=== PATIENT | male | born 1945 | race Caucasian/White ===

== ENCOUNTER 2016-06-28 21:44 | Emergency (ER) | payer OTHER ==
[~2016-06-28] VITALS: Ht 175.3 cm; Wt 80.9 kg
[2016-06-28 22:03] LABS: ADD MIUA? YES; BILIRUBIN NEGATIVE; BLOOD LARGE; COLOR YELLOW ((YELLOW)); GLUCOSE (STRIP) NEGATIVE; KETONES 15; LEUKOCYTES NEGATIVE; NITRITE NEGATIVE; PROTEIN (STRIP) 30; SPECIFIC GRAVITY 1.029 (1.000-1.030); UROBILINOGEN 0.2 MG/DL (0.2-1.0)
[2016-06-28 22:16] LABS: HEMATOCRIT 42.9 % (38.0-50.0); MCH 32.1 PG (29.0-34.0); MCHC 35.7 G/DL (30.0-36.0); MCV 89.9 FL (86-99); MEAN PLAT.VOLUME 9.1 uM^3 (9.0-12.4); PLATELET COUNT 191 K/uL (156-360); RBC DIS.WIDTH-CV 12.7 % (11.8-14.6); RBC DIS.WIDTH-SD 41.1 % (39-53); RED BLOOD COUNT 4.77 M/uL (4.00-5.50); WHITE BLOOD COUNT 7.8 K/uL (4.1-10.2)
[2016-06-28 22:25] LABS: CHLORIDE 106 mEq/L (99-109)
[2016-06-28 22:26] LABS: POTASSIUM 4.6 mEq/L (3.7-5.4); SODIUM 137 mEq/L (136-147)
[2016-06-28 22:28] LABS: GLUCOSE 146 mg/dL (70-99)
[2016-06-28 22:29] LABS: ANION GAP 10 MEQ/L (2-14)
[2016-06-28 22:30] LABS: TOTAL BILIRUBIN 0.6 mg/dL (0.0-1.0)
[2016-06-28 22:31] LABS: ALKALINE PHOSPHATASE 77 IU/L (3-129); GFR ESTIMATE (CALCULATED) 53 mL/min/
[2016-06-28 22:34] LABS: BACTERIA 2+; CALCIUM OXALATE CRYSTALS 1+; CASTS NONE SEEN /LPF; CRYSTALS PRESENT; EPITHELIAL CELLS RARE; MUCUS 4+; RED BLOOD CELLS TNTC /HPF (0-5); UCUL ADDED? NO; WHITE BLOOD CELLS 0-5 /HPF (0-5)
[2016-06-28 22:38] LABS: UREA NITROGEN (BUN) 23 mg/dL (9-23)
[2016-06-28] MEDS ORDERED: ZOFRAN4 MG PO (23:39)
[2016-06-28] MEDS ORDERED: NORCO 5/3251 TABLET PO (23:39)
[2016-06-28 23:55] VITALS: BP 145/68
== END 2016-06-28 23:59 | disposition home or self-care (01) ==
LOC: EME 21:44
DX: N13.2 Hydronephrosis with renal and ureteral calculous obstruction (principal); R11.2 Nausea with vomiting, unspecified; Z87.891 Personal history of nicotine dependence
CPT/HCPCS: 74176; 80053; 81003; 85027; 99281; 99284; J1885